=== PATIENT | female | born 1940 | race Two or more races ===

== ENCOUNTER → 2024-11-15 09:32 | Outpatient (CLI) | payer OTHER | END | disposition home or self-care (01) | LOC: EKG 09:32 | PROVIDERS: ATTEND Internal Medicine | DX: I49.9 Cardiac arrhythmia, unspecified (principal) ==

== ENCOUNTER 2025-06-16 09:19 | Outpatient (CLI) | payer OTHER | END 2025-06-16 09:24 | disposition home or self-care (01) | LOC: NUCLEAR 09:19 | PROVIDERS: ATTEND Internal Medicine | DX: M81.0 Age-related osteoporosis without current pathological fracture (principal) ==

== ENCOUNTER 2025-07-16 07:39 | Outpatient (CLI) | payer OTHER | END 2025-07-16 07:56 | disposition home or self-care (01) | LOC: TOM 07:39 | PROVIDERS: ATTEND Internal Medicine | DX: R19.5 Other fecal abnormalities (principal) | CPT/HCPCS: 74177; Q9965 ==